=== PATIENT | female | born 1960 | race Hispanic/Latino ===

== ENCOUNTER 2025-03-31 05:38 | Inpatient (IN) | payer SELFPAY ==
[2025-03-31 06:39] LABS: #Basophils 0.04 10x3/uL (0.0-0.2); #Eosinophils 0.09 10x3/uL (0.0-0.7); #Monocytes 0.50 10x3/uL (0.11-0.59); #Neutrophils 6.46 10x3/uL (1.40-6.50); %Basophils 0.4 % (0.0-1.0); %Eosinophils 1.0 % (0.0-10.0); %Lymphocytes 24.0 % (21.0-51.0); %Monocytes 5.3 % (0.0-10.0); %Neutrophils 69.0 % (42.0-75.0); Hematocrit 41.6 % (36.0-47.0); Hemoglobin 13.7 g/dL (12.0-16.0); Mean Corpuscular Hemoglobin 27.3 pg (27.0-31.0); Mean Corpuscular Volume 83.0 fL (78.0-98.0); Platelet Count 326 10x3/uL (130-400); Red Blood Cell (RBC) Count 5.01 mill/uL (4.20-5.40); White Blood Cell (WBC) Count 9.37 10x3/uL (4.8-10.8)
[2025-03-31] MEDS ORDERED: Mag-Al 1200 mg/1200 mg/30 ML UDCUP ONE (06:55)
[2025-03-31] MEDS ORDERED: Lidocaine Viscous Sol 2% 15 ml UD Cup ONE (06:55)
[2025-03-31 06:58] LABS: ALT (SGPT) 13 U/L (Less than 34); AST (SGOT) 18 U/L (11-34); Albumin 3.8 g/dL (3.1-4.5); Alkaline Phosphatase 121 U/L (40-110); Anion Gap 17 mmol/L (10-20); BUN (Urea Nitrogen) 9 mg/dL (9.8-20.1); Bilirubin, Total 0.2 mg/dL (0.3-1.2); Calc. Creatinine Clearance 0 mL/min (70-130); Calcium 9.2 mg/dL (7.8-10.44); Carbon Dioxide 25 mmol/L (23-31); Chloride 102 mmol/L (98-107); Globulin 3.6 g/dL (2.4-3.5); Glucose 237 mg/dL (80-115); Lipase 83 U/L (8-78); Potassium 3.8 mmol/L (3.5-5.1); Sodium 140 mmol/L (136-145)
[2025-03-31] MEDS ORDERED: Aspirin Chewable 81 MG TAB ONE (07:18)
[2025-03-31] MEDS ORDERED: Ondansetron PF 4 MG/2 ML Vial ONE (07:20)
[2025-03-31] MEDS ORDERED: Glucagon 1 MG/ML KIT IM PRN (08:26)
[2025-03-31] MEDS ORDERED: Dextrose 50% Abboject 50 ML SYRINGE SLOW IVP PRN (08:26)
[2025-03-31] MEDS ORDERED: Ondansetron PF 4 MG/2 ML Vial IVP PRN (08:35)
[2025-03-31] MEDS ORDERED: Nitroglycerin 0.4 MG TAB (25 Tab Bottle) SL PRN (08:35)
[2025-03-31] MEDS ORDERED: Melatonin 3 MG TAB PO PRN (08:35)
[2025-03-31] MEDS: Aspirin Chewable 81 MG TAB PO SCH (09:29)
[2025-03-31] MEDS ORDERED: Enoxaparin 40 MG (0.4 mL) SYRINGE ONE (09:45)
[2025-03-31] MEDS ORDERED: Famotidine/PF 20 mg/2ml Vial ONE (09:45)
[2025-03-31] MEDS: Enoxaparin 40 MG (0.4 mL) SYRINGE SC SCH (09:55)
[2025-03-31] MEDS: Famotidine/PF 20 mg/2ml Vial SLOW IVP SCH (09:56)
[2025-03-31 12:18] VITALS: BMI 27.1
[2025-03-31] MEDS: Nitroglycerin 2% Ointment 1 INCH/1 GM Packet TOP SCH (15:08)
[2025-03-31] MEDS: Acetaminophen 325 MG TAB PO PRN (18:21)
[2025-04-01 04:39] LABS: #Basophils Less than 0.03 10x3/uL (0.0-0.2); #Eosinophils 0.06 10x3/uL (0.0-0.7); #Monocytes 0.39 10x3/uL (0.11-0.59); #Neutrophils 4.18 10x3/uL (1.40-6.50); %Basophils 0.3 % (0.0-1.0); %Eosinophils 0.9 % (0.0-10.0); %Lymphocytes 32.8 % (21.0-51.0); %Monocytes 5.6 % (0.0-10.0); %Neutrophils 60.1 % (42.0-75.0); Hematocrit 41.2 % (36.0-47.0); Hemoglobin 13.3 g/dL (12.0-16.0); Mean Corpuscular Hemoglobin 27.3 pg (27.0-31.0); Mean Corpuscular Volume 84.4 fL (78.0-98.0); Platelet Count 298 10x3/uL (130-400); Red Blood Cell (RBC) Count 4.88 mill/uL (4.20-5.40); White Blood Cell (WBC) Count 6.95 10x3/uL (4.8-10.8)
[2025-04-01 05:01] LABS: Anion Gap 13 mmol/L (10-20); BUN (Urea Nitrogen) 12 mg/dL (9.8-20.1); Calc. Creatinine Clearance 118 mL/min (70-130); Calcium 8.8 mg/dL (7.8-10.44); Carbon Dioxide 25 mmol/L (23-31); Cardiac Risk 3.7 (Less than 4.5); Chloride 103 mmol/L (98-107); Cholesterol 186 mg/dl (< 200 Desired); Glucose 203 mg/dL (80-115); HDL Cholesterol 50 mg/dL (>60 Neg Risk); LDL Cholesterol, Calculated 87 mg/dL; Potassium 3.9 mmol/L (3.5-5.1); Sodium 137 mmol/L (136-145); Triglycerides 246 mg/dL (Less than 150)
[2025-04-01] MEDS: glipiZIDE 5 MG TAB PO SCH (08:47)
[2025-04-01] MEDS: Lisinopril 20 MG TAB PO SCH (08:48)
[2025-04-01 14:12] VITALS: BMI 27.1
[2025-04-02] MEDS ORDERED: Iopamidol-370 76% 500 ML MDV (1 ML CHARGE) ONE (11:55)
[2025-04-02 15:07] VITALS: BP 115/49; TEMP 98.1
== END 2025-04-02 19:00 | disposition home or self-care (01) | DRG 281 ==
LOC: ERS 05:38 → ERHOLD 08:09 → 2NO 10:58
PROVIDERS: ADMIT Internal Medicine; ATTEND Internal Medicine
DX: I21.4 Non-ST elevation (NSTEMI) myocardial infarction (principal); I42.9 Cardiomyopathy, unspecified; I10 Essential (primary) hypertension; E11.9 Type 2 diabetes mellitus without complications; E78.00 Pure hypercholesterolemia, unspecified; Z79.899 Other long term (current) drug therapy; Z79.84 Long term (current) use of oral hypoglycemic drugs; Z98.890 Other specified postprocedural states
CPT/HCPCS: 36415; 36416; 71045; 74177; 76705; 78452; 80048; 80053; 80061; 83690; 84484; 85025; 93005; 93017; 93306; 96374; A9502; J1308; J1650; J1815; J2405; J2785; Q9967

== ENCOUNTER 2025-04-14 07:30 | Inpatient (IN) | payer SELFPAY ==
[2025-04-14 08:02] LABS: #Basophils 0.03 10x3/uL (0.0-0.2); #Eosinophils Less than 0.03 10x3/uL (0.0-0.7); #Monocytes 0.19 10x3/uL (0.11-0.59); #Neutrophils 11.00 10x3/uL (1.40-6.50); %Basophils 0.2 % (0.0-1.0); %Eosinophils 0.2 % (0.0-10.0); %Lymphocytes 11.1 % (21.0-51.0); %Monocytes 1.5 % (0.0-10.0); %Neutrophils 86.5 % (42.0-75.0); Hematocrit 43.3 % (36.0-47.0); Hemoglobin 14.2 g/dL (12.0-16.0); Mean Corpuscular Hemoglobin 27.5 pg (27.0-31.0); Mean Corpuscular Volume 83.9 fL (78.0-98.0); Platelet Count 358 10x3/uL (130-400); Red Blood Cell (RBC) Count 5.16 mill/uL (4.20-5.40); White Blood Cell (WBC) Count 12.71 10x3/uL (4.8-10.8)
[2025-04-14] MEDS ORDERED: Lidocaine Viscous Sol 2% 15 ml UD Cup ONE (08:11)
[2025-04-14] MEDS ORDERED: Mag-Al 1200 mg/1200 mg/30 ML UDCUP ONE (08:11)
[2025-04-14 08:16] LABS: ALT (SGPT) 13 U/L (Less than 34); AST (SGOT) 27 U/L (11-34); Albumin 3.9 g/dL (3.1-4.5); Alkaline Phosphatase 136 U/L (40-110); Anion Gap 17 mmol/L (10-20); BUN (Urea Nitrogen) 13 mg/dL (9.8-20.1); Bilirubin, Total 0.4 mg/dL (0.3-1.2); Calc. Creatinine Clearance 0 mL/min (70-130); Calcium 9.6 mg/dL (7.8-10.44); Carbon Dioxide 25 mmol/L (23-31); Chloride 98 mmol/L (98-107); Globulin 3.8 g/dL (2.4-3.5); Glucose 304 mg/dL (80-115); Potassium 3.6 mmol/L (3.5-5.1); Sodium 136 mmol/L (136-145)
[2025-04-14] MEDS ORDERED: Aspirin Chewable 81 MG TAB ONE (08:45)
[2025-04-14] MEDS ORDERED: Glucagon 1 MG/ML KIT IM PRN (09:51)
[2025-04-14] MEDS ORDERED: Dextrose 50% Abboject 50 ML SYRINGE SLOW IVP PRN (09:51)
[2025-04-14] MEDS ORDERED: Electrolyte Replacement Protocol 1 EACH FS SCH (10:00)
[2025-04-14 10:58] VITALS: BMI 30.6
[2025-04-14] MEDS ORDERED: Iopamidol 370 76% 100 ML VIAL ONE (11:27)
[2025-04-14] MEDS: Enoxaparin 80 MG (0.8 mL) SYRINGE SC SCH (12:05)
[2025-04-14] MEDS: Acetaminophen 325 MG TAB PO SCH (12:06)
[2025-04-14] MEDS: Ondansetron PF 4 MG/2 ML Vial IVP PRN (12:08)
[2025-04-14] MEDS: Nitroglycerin 0.4 MG TAB (25 Tab Bottle) SL PRN (12:08)
[2025-04-14] MEDS ORDERED: Lidocaine 1% (PF) 30 ML VIAL ONE (14:45)
[2025-04-14] MEDS ORDERED: Communication Order-Pharmacy FS SCH (14:45)
[2025-04-14] MEDS ORDERED: Adenosine 6 mg (2 mL) VIAL ONE (14:45)
[2025-04-14] MEDS ORDERED: Heparin 10,000 UNITS/ 10 ML VIAL ONE (14:45)
[2025-04-14] MEDS ORDERED: PHENYLEPHRINE-NS 100 MCG/ML 10 ML SYRINGE ONE (14:45)
[2025-04-14] MEDS ORDERED: Nitroglycerin 50 MG/250 ML BOT 250 ML ONE (14:45)
[2025-04-14 15:40] LABS: Bacteria/HPF None Seen HPF (None Seen); CAUTI Indications for Culture Dysuria,urgency,freq; Glucose, Urine (Dipstick) Greater than 1000 mg/dL (Negative); Leukocyte Negative Leu/uL (Negative); Protein, Urine (Dipstick) 20 mg/dL (Neg-Trace); RBC/HPF 0-3 HPF (0-3); Specific Gravity, Urine 1.039 (1.002-1.036); WBC/HPF 0-3 HPF (0-3)
[2025-04-14 15:54] LABS: Urine Culture Reflex No No
[2025-04-14] MEDS ORDERED: Enoxaparin 30 MG (0.3 mL) SYRINGE ONE (15:56)
[2025-04-14] MEDS ORDERED: Enoxaparin 40 MG (0.4 mL) SYRINGE ONE (15:56)
[2025-04-14] MEDS ORDERED: Metoprolol Tartrate 5 MG (5 mL) VIAL ONE (17:13)
[2025-04-14] MEDS ORDERED: DISCONTINUE PREVIOUS NARCOTIC PAIN MEDICATIONS AND BENZODIAZEPINES FS SCH (17:30)
[2025-04-14] MEDS ORDERED: Fentanyl BOLUS 100 ML IVPB PRN (17:30)
[2025-04-14] MEDS ORDERED: Propofol BOLUS 1,000 MG/100 ML VIAL IV PRN (17:30)
[2025-04-14] MEDS: Ventilator Sedation Protocol 1 EACH FS ONE (19:23)
[2025-04-14] MEDS: Famotidine/PF 20 mg/2ml Vial SLOW IVP SCH (19:39)
[2025-04-14 21:47] LABS: #Basophils 0.05 10x3/uL (0.0-0.2); #Eosinophils Less than 0.03 10x3/uL (0.0-0.7); #Monocytes 1.18 10x3/uL (0.11-0.59); #Neutrophils 11.85 10x3/uL (1.40-6.50); %Basophils 0.3 % (0.0-1.0); %Eosinophils 0.0 % (0.0-10.0); %Lymphocytes 17.4 % (21.0-51.0); %Monocytes 7.3 % (0.0-10.0); %Neutrophils 73.8 % (42.0-75.0); Hematocrit 40.6 % (36.0-47.0); Hemoglobin 12.9 g/dL (12.0-16.0); Mean Corpuscular Hemoglobin 27.0 pg (27.0-31.0); Mean Corpuscular Volume 84.9 fL (78.0-98.0); Platelet Count 317 10x3/uL (130-400); Red Blood Cell (RBC) Count 4.78 mill/uL (4.20-5.40); White Blood Cell (WBC) Count 16.07 10x3/uL (4.8-10.8)
[2025-04-14] MEDS: NOREPINEPHRINE 8 MG/250 ML-D5W 250 ML IVPB SCH (22:17)
[2025-04-15 02:03] LABS: #Basophils 0.05 10x3/uL (0.0-0.2); #Eosinophils Less than 0.03 10x3/uL (0.0-0.7); #Monocytes 1.28 10x3/uL (0.11-0.59); #Neutrophils 12.23 10x3/uL (1.40-6.50); %Basophils 0.3 % (0.0-1.0); %Eosinophils 0.1 % (0.0-10.0); %Lymphocytes 19.9 % (21.0-51.0); %Monocytes 7.5 % (0.0-10.0); %Neutrophils 71.8 % (42.0-75.0); Hematocrit 39.0 % (36.0-47.0); Hemoglobin 12.9 g/dL (12.0-16.0); Mean Corpuscular Hemoglobin 27.6 pg (27.0-31.0); Mean Corpuscular Volume 83.3 fL (78.0-98.0); Platelet Count 385 10x3/uL (130-400); Red Blood Cell (RBC) Count 4.68 mill/uL (4.20-5.40); White Blood Cell (WBC) Count 17.02 10x3/uL (4.8-10.8)
[2025-04-15 03:37] LABS: #Basophils 0.06 10x3/uL (0.0-0.2); #Eosinophils Less than 0.03 10x3/uL (0.0-0.7); #Monocytes 1.28 10x3/uL (0.11-0.59); #Neutrophils 12.16 10x3/uL (1.40-6.50); %Basophils 0.4 % (0.0-1.0); %Eosinophils 0.1 % (0.0-10.0); %Lymphocytes 20.6 % (21.0-51.0); %Monocytes 7.5 % (0.0-10.0); %Neutrophils 70.9 % (42.0-75.0); Hematocrit 40.0 % (36.0-47.0); Hemoglobin 12.8 g/dL (12.0-16.0); Mean Corpuscular Hemoglobin 27.1 pg (27.0-31.0); Mean Corpuscular Volume 84.7 fL (78.0-98.0); Platelet Count 350 10x3/uL (130-400); Red Blood Cell (RBC) Count 4.72 mill/uL (4.20-5.40); White Blood Cell (WBC) Count 17.12 10x3/uL (4.8-10.8)
[2025-04-15 03:54] LABS: ALT (SGPT) 94 U/L (Less than 34); AST (SGOT) 508 U/L (11-34); Albumin 3.0 g/dL (3.1-4.5); Alkaline Phosphatase 98 U/L (40-110); Anion Gap 17 mmol/L (10-20); BUN (Urea Nitrogen) 12 mg/dL (9.8-20.1); Bilirubin, Total 0.4 mg/dL (0.3-1.2); Calc. Creatinine Clearance 126 mL/min (70-130); Calcium 8.4 mg/dL (7.8-10.44); Carbon Dioxide 19 mmol/L (23-31); Cardiac Risk 3.7 (Less than 4.5); Chloride 103 mmol/L (98-107); Cholesterol 168 mg/dl (< 200 Desired); Globulin 3.3 g/dL (2.4-3.5); Glucose 248 mg/dL (80-115); HDL Cholesterol 46 mg/dL (>60 Neg Risk); LDL Cholesterol, Calculated 63 mg/dL; Potassium 3.2 mmol/L (3.5-5.1); Sodium 136 mmol/L (136-145); Triglycerides 293 mg/dL (Less than 150)
[2025-04-15 07:02] LABS: #Basophils 0.06 10x3/uL (0.0-0.2); #Eosinophils Less than 0.03 10x3/uL (0.0-0.7); #Monocytes 1.10 10x3/uL (0.11-0.59); #Neutrophils 11.10 10x3/uL (1.40-6.50); %Basophils 0.4 % (0.0-1.0); %Eosinophils 0.1 % (0.0-10.0); %Lymphocytes 22.0 % (21.0-51.0); %Monocytes 7.0 % (0.0-10.0); %Neutrophils 70.1 % (42.0-75.0); Hematocrit 38.0 % (36.0-47.0); Hemoglobin 12.4 g/dL (12.0-16.0); Mean Corpuscular Hemoglobin 27.6 pg (27.0-31.0); Mean Corpuscular Volume 84.6 fL (78.0-98.0); Platelet Count 361 10x3/uL (130-400); Red Blood Cell (RBC) Count 4.49 mill/uL (4.20-5.40); White Blood Cell (WBC) Count 15.80 10x3/uL (4.8-10.8)
[2025-04-15 08:21] LABS: Actual Bicarbonate (HCO3a) 20.6 mEq/L (22-28); Base Excess (BEa) -0.7 mEq/L (-2.0 to +3.0); CO2 Tension 25.6 mmHg (35.0-45.0); Calcium, Ionized (arterial) 1.15 mmol/L (1.12-1.30); Hematocrit-ABG 40 % (36.0-47.0); Hemoglobin (Hb) 13.5 g/dL (12.0-16.0); O2 Tension (PaO2), arterial 134.1 mmHg (> 80.0); Potassium - ABG Lab 3.17 mmol/L (3.70-5.30); pH, Arterial 7.523 (7.35-7.45)
[2025-04-15] MEDS: Carvedilol 3.125 MG TAB PO SCH (08:22)
[2025-04-15] MEDS: Potassium Chloride 20 MEQ in Premix 1 BAG IVPB SCH (08:22)
[2025-04-15 08:23] LABS: ALV-art Gradient 119.100 mmHg (0-20); Puncture Site Right Brachial art
[2025-04-15] MEDS: Aspirin Chewable 81 MG TAB PO SCH (08:53)
[2025-04-15] MEDS: Lisinopril 2.5 MG TAB PO SCH (08:54)
[2025-04-15] MEDS: PNEUMOC 20-VAL CONJ-DIP CRM/PF 0.5 ML SYRINGE IM ONE (09:04)
[2025-04-15 13:22] LABS: #Basophils 0.04 10x3/uL (0.0-0.2); #Eosinophils Less than 0.03 10x3/uL (0.0-0.7); #Monocytes 0.84 10x3/uL (0.11-0.59); #Neutrophils 9.87 10x3/uL (1.40-6.50); %Basophils 0.3 % (0.0-1.0); %Eosinophils 0.1 % (0.0-10.0); %Lymphocytes 14.1 % (21.0-51.0); %Monocytes 6.7 % (0.0-10.0); %Neutrophils 78.4 % (42.0-75.0); Hematocrit 37.4 % (36.0-47.0); Hemoglobin 12.0 g/dL (12.0-16.0); Mean Corpuscular Hemoglobin 27.3 pg (27.0-31.0); Mean Corpuscular Volume 85.0 fL (78.0-98.0); Platelet Count 309 10x3/uL (130-400); Red Blood Cell (RBC) Count 4.40 mill/uL (4.20-5.40); White Blood Cell (WBC) Count 12.58 10x3/uL (4.8-10.8)
[2025-04-15 18:59] LABS: #Basophils 0.05 10x3/uL (0.0-0.2); #Eosinophils Less than 0.03 10x3/uL (0.0-0.7); #Monocytes 0.86 10x3/uL (0.11-0.59); #Neutrophils 8.42 10x3/uL (1.40-6.50); %Basophils 0.4 % (0.0-1.0); %Eosinophils 0.2 % (0.0-10.0); %Lymphocytes 20.2 % (21.0-51.0); %Monocytes 7.3 % (0.0-10.0); %Neutrophils 71.6 % (42.0-75.0); Hematocrit 38.7 % (36.0-47.0); Hemoglobin 13.0 g/dL (12.0-16.0); Mean Corpuscular Hemoglobin 28.6 pg (27.0-31.0); Mean Corpuscular Volume 85.1 fL (78.0-98.0); Platelet Count 281 10x3/uL (130-400); Red Blood Cell (RBC) Count 4.55 mill/uL (4.20-5.40); White Blood Cell (WBC) Count 11.77 10x3/uL (4.8-10.8)
[2025-04-15] MEDS: Melatonin 3 MG TAB PO PRN (23:06)
[2025-04-16 00:52] LABS: #Basophils 0.05 10x3/uL (0.0-0.2); #Eosinophils 0.03 10x3/uL (0.0-0.7); #Monocytes 0.89 10x3/uL (0.11-0.59); #Neutrophils 8.37 10x3/uL (1.40-6.50); %Basophils 0.4 % (0.0-1.0); %Eosinophils 0.3 % (0.0-10.0); %Lymphocytes 20.1 % (21.0-51.0); %Monocytes 7.6 % (0.0-10.0); %Neutrophils 71.3 % (42.0-75.0); Hematocrit 35.0 % (36.0-47.0); Hemoglobin 11.1 g/dL (12.0-16.0); Mean Corpuscular Hemoglobin 27.4 pg (27.0-31.0); Mean Corpuscular Volume 86.4 fL (78.0-98.0); Platelet Count 238 10x3/uL (130-400); Red Blood Cell (RBC) Count 4.05 mill/uL (4.20-5.40); White Blood Cell (WBC) Count 11.72 10x3/uL (4.8-10.8)
[2025-04-16 04:45] LABS: ALT (SGPT) 58 U/L (Less than 34); AST (SGOT) 153 U/L (11-34); Albumin 2.8 g/dL (3.1-4.5); Alkaline Phosphatase 85 U/L (40-110); Anion Gap 13 mmol/L (10-20); BUN (Urea Nitrogen) 10 mg/dL (9.8-20.1); Bilirubin, Total 0.5 mg/dL (0.3-1.2); Calc. Creatinine Clearance 122 mL/min (70-130); Calcium 8.2 mg/dL (7.8-10.44); Carbon Dioxide 23 mmol/L (23-31); Chloride 104 mmol/L (98-107); Globulin 2.9 g/dL (2.4-3.5); Glucose 171 mg/dL (80-115); Potassium 3.5 mmol/L (3.5-5.1); Sodium 136 mmol/L (136-145)
[2025-04-16] MEDS: Albumin 5% 12.5 GM (250 mL) BOT IVPB SCH (05:49)
[2025-04-16 05:55] LABS: #Basophils 0.04 10x3/uL (0.0-0.2); #Eosinophils 0.06 10x3/uL (0.0-0.7); #Monocytes 0.78 10x3/uL (0.11-0.59); #Neutrophils 7.55 10x3/uL (1.40-6.50); %Basophils 0.4 % (0.0-1.0); %Eosinophils 0.6 % (0.0-10.0); %Lymphocytes 21.1 % (21.0-51.0); %Monocytes 7.3 % (0.0-10.0); %Neutrophils 70.2 % (42.0-75.0); Hematocrit 34.0 % (36.0-47.0); Hemoglobin 11.0 g/dL (12.0-16.0); Mean Corpuscular Hemoglobin 28.1 pg (27.0-31.0); Mean Corpuscular Volume 87.0 fL (78.0-98.0); Platelet Count 253 10x3/uL (130-400); Red Blood Cell (RBC) Count 3.91 mill/uL (4.20-5.40); White Blood Cell (WBC) Count 10.73 10x3/uL (4.8-10.8)
[2025-04-16] MEDS: Potassium Chloride 20 MEQ in Premix 1 BAG IVPB SCH (11:15)
[2025-04-16 12:41] LABS: #Basophils 0.04 10x3/uL (0.0-0.2); #Eosinophils 0.04 10x3/uL (0.0-0.7); #Monocytes 0.53 10x3/uL (0.11-0.59); #Neutrophils 6.69 10x3/uL (1.40-6.50); %Basophils 0.4 % (0.0-1.0); %Eosinophils 0.4 % (0.0-10.0); %Lymphocytes 20.5 % (21.0-51.0); %Monocytes 5.7 % (0.0-10.0); %Neutrophils 72.7 % (42.0-75.0); Hematocrit 33.7 % (36.0-47.0); Hemoglobin 10.5 g/dL (12.0-16.0); Mean Corpuscular Hemoglobin 27.2 pg (27.0-31.0); Mean Corpuscular Volume 87.3 fL (78.0-98.0); Platelet Count 235 10x3/uL (130-400); Red Blood Cell (RBC) Count 3.86 mill/uL (4.20-5.40); White Blood Cell (WBC) Count 9.22 10x3/uL (4.8-10.8)
[2025-04-16] MEDS: Carvedilol 3.125 MG TAB PO SCH (17:58)
[2025-04-16 18:41] LABS: #Basophils 0.03 10x3/uL (0.0-0.2); #Eosinophils 0.06 10x3/uL (0.0-0.7); #Monocytes 0.64 10x3/uL (0.11-0.59); #Neutrophils 5.80 10x3/uL (1.40-6.50); %Basophils 0.3 % (0.0-1.0); %Eosinophils 0.7 % (0.0-10.0); %Lymphocytes 24.7 % (21.0-51.0); %Monocytes 7.4 % (0.0-10.0); %Neutrophils 66.7 % (42.0-75.0); Hematocrit 32.4 % (36.0-47.0); Hemoglobin 10.5 g/dL (12.0-16.0); Mean Corpuscular Hemoglobin 27.7 pg (27.0-31.0); Mean Corpuscular Volume 85.5 fL (78.0-98.0); Platelet Count 233 10x3/uL (130-400); Red Blood Cell (RBC) Count 3.79 mill/uL (4.20-5.40); White Blood Cell (WBC) Count 8.70 10x3/uL (4.8-10.8)
[2025-04-17 01:16] LABS: #Basophils 0.04 10x3/uL (0.0-0.2); #Eosinophils 0.06 10x3/uL (0.0-0.7); #Monocytes 0.64 10x3/uL (0.11-0.59); #Neutrophils 7.18 10x3/uL (1.40-6.50); %Basophils 0.4 % (0.0-1.0); %Eosinophils 0.6 % (0.0-10.0); %Lymphocytes 21.1 % (21.0-51.0); %Monocytes 6.3 % (0.0-10.0); %Neutrophils 71.3 % (42.0-75.0); Hematocrit 31.8 % (36.0-47.0); Hemoglobin 10.0 g/dL (12.0-16.0); Mean Corpuscular Hemoglobin 27.9 pg (27.0-31.0); Mean Corpuscular Volume 88.6 fL (78.0-98.0); Platelet Count 235 10x3/uL (130-400); Red Blood Cell (RBC) Count 3.59 mill/uL (4.20-5.40); White Blood Cell (WBC) Count 10.08 10x3/uL (4.8-10.8)
[2025-04-17 05:47] LABS: #Basophils 0.04 10x3/uL (0.0-0.2); #Eosinophils 0.07 10x3/uL (0.0-0.7); #Monocytes 0.50 10x3/uL (0.11-0.59); #Neutrophils 4.56 10x3/uL (1.40-6.50); %Basophils 0.6 % (0.0-1.0); %Eosinophils 1.0 % (0.0-10.0); %Lymphocytes 28.7 % (21.0-51.0); %Monocytes 6.9 % (0.0-10.0); %Neutrophils 62.7 % (42.0-75.0); Hematocrit 31.9 % (36.0-47.0); Hemoglobin 10.2 g/dL (12.0-16.0); Mean Corpuscular Hemoglobin 27.6 pg (27.0-31.0); Mean Corpuscular Volume 86.2 fL (78.0-98.0); Platelet Count 235 10x3/uL (130-400); Red Blood Cell (RBC) Count 3.70 mill/uL (4.20-5.40); White Blood Cell (WBC) Count 7.27 10x3/uL (4.8-10.8)
[2025-04-17 06:09] LABS: ALT (SGPT) 36 U/L (Less than 34); AST (SGOT) 69 U/L (11-34); Albumin 3.0 g/dL (3.1-4.5); Alkaline Phosphatase 80 U/L (40-110); Anion Gap 12 mmol/L (10-20); BUN (Urea Nitrogen) 10 mg/dL (9.8-20.1); Bilirubin, Total 0.4 mg/dL (0.3-1.2); Calc. Creatinine Clearance 125 mL/min (70-130); Calcium 8.3 mg/dL (7.8-10.44); Carbon Dioxide 23 mmol/L (23-31); Chloride 109 mmol/L (98-107); Globulin 2.9 g/dL (2.4-3.5); Glucose 146 mg/dL (80-115); Potassium 3.7 mmol/L (3.5-5.1); Sodium 140 mmol/L (136-145)
[2025-04-17 06:46] LABS: #Basophils 0.03 10x3/uL (0.0-0.2); #Eosinophils 0.09 10x3/uL (0.0-0.7); #Monocytes 0.49 10x3/uL (0.11-0.59); #Neutrophils 4.51 10x3/uL (1.40-6.50); %Basophils 0.4 % (0.0-1.0); %Eosinophils 1.2 % (0.0-10.0); %Lymphocytes 29.1 % (21.0-51.0); %Monocytes 6.8 % (0.0-10.0); %Neutrophils 62.2 % (42.0-75.0); Hematocrit 30.0 % (36.0-47.0); Hemoglobin 9.8 g/dL (12.0-16.0); Mean Corpuscular Hemoglobin 27.7 pg (27.0-31.0); Mean Corpuscular Volume 84.7 fL (78.0-98.0); Platelet Count 229 10x3/uL (130-400); Red Blood Cell (RBC) Count 3.54 mill/uL (4.20-5.40); White Blood Cell (WBC) Count 7.25 10x3/uL (4.8-10.8)
[2025-04-17] MEDS: Dapagliflozin Propanediol 10 MG TAB PO SCH (08:19)
[2025-04-17 11:58] VITALS: BMI 30.9
[2025-04-17 13:29] LABS: #Basophils 0.03 10x3/uL (0.0-0.2); #Eosinophils 0.10 10x3/uL (0.0-0.7); #Monocytes 0.46 10x3/uL (0.11-0.59); #Neutrophils 5.49 10x3/uL (1.40-6.50); %Basophils 0.4 % (0.0-1.0); %Eosinophils 1.2 % (0.0-10.0); %Lymphocytes 24.2 % (21.0-51.0); %Monocytes 5.7 % (0.0-10.0); %Neutrophils 68.0 % (42.0-75.0); Hematocrit 31.8 % (36.0-47.0); Hemoglobin 10.1 g/dL (12.0-16.0); Mean Corpuscular Hemoglobin 27.4 pg (27.0-31.0); Mean Corpuscular Volume 86.2 fL (78.0-98.0); Platelet Count 242 10x3/uL (130-400); Red Blood Cell (RBC) Count 3.69 mill/uL (4.20-5.40); White Blood Cell (WBC) Count 8.07 10x3/uL (4.8-10.8)
[2025-04-17 19:03] LABS: #Basophils 0.04 10x3/uL (0.0-0.2); #Eosinophils 0.12 10x3/uL (0.0-0.7); #Monocytes 0.46 10x3/uL (0.11-0.59); #Neutrophils 5.84 10x3/uL (1.40-6.50); %Basophils 0.5 % (0.0-1.0); %Eosinophils 1.4 % (0.0-10.0); %Lymphocytes 23.8 % (21.0-51.0); %Monocytes 5.4 % (0.0-10.0); %Neutrophils 68.7 % (42.0-75.0); Hematocrit 31.9 % (36.0-47.0); Hemoglobin 10.5 g/dL (12.0-16.0); Mean Corpuscular Hemoglobin 27.7 pg (27.0-31.0); Mean Corpuscular Volume 84.2 fL (78.0-98.0); Platelet Count 258 10x3/uL (130-400); Red Blood Cell (RBC) Count 3.79 mill/uL (4.20-5.40); White Blood Cell (WBC) Count 8.50 10x3/uL (4.8-10.8)
[2025-04-18 00:59] LABS: #Basophils 0.04 10x3/uL (0.0-0.2); #Eosinophils 0.15 10x3/uL (0.0-0.7); #Monocytes 0.49 10x3/uL (0.11-0.59); #Neutrophils 5.50 10x3/uL (1.40-6.50); %Basophils 0.5 % (0.0-1.0); %Eosinophils 1.8 % (0.0-10.0); %Lymphocytes 25.4 % (21.0-51.0); %Monocytes 5.9 % (0.0-10.0); %Neutrophils 66.2 % (42.0-75.0); Hematocrit 30.8 % (36.0-47.0); Hemoglobin 10.1 g/dL (12.0-16.0); Mean Corpuscular Hemoglobin 27.9 pg (27.0-31.0); Mean Corpuscular Volume 85.1 fL (78.0-98.0); Platelet Count 243 10x3/uL (130-400); Red Blood Cell (RBC) Count 3.62 mill/uL (4.20-5.40); White Blood Cell (WBC) Count 8.31 10x3/uL (4.8-10.8)
[2025-04-18 05:11] LABS: #Basophils 0.04 10x3/uL (0.0-0.2); #Eosinophils 0.12 10x3/uL (0.0-0.7); #Monocytes 0.48 10x3/uL (0.11-0.59); #Neutrophils 4.54 10x3/uL (1.40-6.50); %Basophils 0.6 % (0.0-1.0); %Eosinophils 1.7 % (0.0-10.0); %Lymphocytes 27.8 % (21.0-51.0); %Monocytes 6.6 % (0.0-10.0); %Neutrophils 62.9 % (42.0-75.0); Hematocrit 32.5 % (36.0-47.0); Hemoglobin 10.6 g/dL (12.0-16.0); Mean Corpuscular Hemoglobin 27.5 pg (27.0-31.0); Mean Corpuscular Volume 84.4 fL (78.0-98.0); Platelet Count 270 10x3/uL (130-400); Red Blood Cell (RBC) Count 3.85 mill/uL (4.20-5.40); White Blood Cell (WBC) Count 7.22 10x3/uL (4.8-10.8)
[2025-04-18 05:28] LABS: ALT (SGPT) 30 U/L (Less than 34); AST (SGOT) 40 U/L (11-34); Albumin 3.2 g/dL (3.1-4.5); Alkaline Phosphatase 91 U/L (40-110); Anion Gap 21 mmol/L (10-20); BUN (Urea Nitrogen) 10 mg/dL (9.8-20.1); Bilirubin, Total 0.4 mg/dL (0.3-1.2); Calc. Creatinine Clearance 115 mL/min (70-130); Calcium 8.8 mg/dL (7.8-10.44); Carbon Dioxide 21 mmol/L (23-31); Chloride 102 mmol/L (98-107); Globulin 3.2 g/dL (2.4-3.5); Glucose 134 mg/dL (80-115); Potassium 3.7 mmol/L (3.5-5.1); Sodium 140 mmol/L (136-145)
[2025-04-18 07:18] LABS: #Basophils 0.03 10x3/uL (0.0-0.2); #Eosinophils 0.15 10x3/uL (0.0-0.7); #Monocytes 0.46 10x3/uL (0.11-0.59); #Neutrophils 4.61 10x3/uL (1.40-6.50); %Basophils 0.4 % (0.0-1.0); %Eosinophils 2.1 % (0.0-10.0); %Lymphocytes 27.8 % (21.0-51.0); %Monocytes 6.3 % (0.0-10.0); %Neutrophils 63.3 % (42.0-75.0); Hematocrit 33.7 % (36.0-47.0); Hemoglobin 10.6 g/dL (12.0-16.0); Mean Corpuscular Hemoglobin 27.2 pg (27.0-31.0); Mean Corpuscular Volume 86.4 fL (78.0-98.0); Platelet Count 264 10x3/uL (130-400); Red Blood Cell (RBC) Count 3.90 mill/uL (4.20-5.40); White Blood Cell (WBC) Count 7.29 10x3/uL (4.8-10.8)
[2025-04-18 12:38] LABS: #Basophils 0.04 10x3/uL (0.0-0.2); #Eosinophils 0.14 10x3/uL (0.0-0.7); #Monocytes 0.53 10x3/uL (0.11-0.59); #Neutrophils 5.63 10x3/uL (1.40-6.50); %Basophils 0.5 % (0.0-1.0); %Eosinophils 1.6 % (0.0-10.0); %Lymphocytes 26.7 % (21.0-51.0); %Monocytes 6.1 % (0.0-10.0); %Neutrophils 64.8 % (42.0-75.0); Hematocrit 36.7 % (36.0-47.0); Hemoglobin 11.7 g/dL (12.0-16.0); Mean Corpuscular Hemoglobin 27.7 pg (27.0-31.0); Mean Corpuscular Volume 86.8 fL (78.0-98.0); Platelet Count 281 10x3/uL (130-400); Red Blood Cell (RBC) Count 4.23 mill/uL (4.20-5.40); White Blood Cell (WBC) Count 8.69 10x3/uL (4.8-10.8)
[2025-04-18] MEDS: Carvedilol 3.125 MG TAB PO SCH (16:43)
[2025-04-18 19:14] LABS: #Basophils Less than 0.03 10x3/uL (0.0-0.2); #Eosinophils 0.13 10x3/uL (0.0-0.7); #Monocytes 0.41 10x3/uL (0.11-0.59); #Neutrophils 4.57 10x3/uL (1.40-6.50); %Basophils 0.3 % (0.0-1.0); %Eosinophils 1.9 % (0.0-10.0); %Lymphocytes 26.0 % (21.0-51.0); %Monocytes 5.9 % (0.0-10.0); %Neutrophils 65.6 % (42.0-75.0); Hematocrit 32.5 % (36.0-47.0); Hemoglobin 10.7 g/dL (12.0-16.0); Mean Corpuscular Hemoglobin 27.4 pg (27.0-31.0); Mean Corpuscular Volume 83.3 fL (78.0-98.0); Platelet Count 270 10x3/uL (130-400); Red Blood Cell (RBC) Count 3.90 mill/uL (4.20-5.40); White Blood Cell (WBC) Count 6.96 10x3/uL (4.8-10.8)
[2025-04-19 01:03] LABS: #Basophils 0.05 10x3/uL (0.0-0.2); #Eosinophils 0.20 10x3/uL (0.0-0.7); #Monocytes 0.52 10x3/uL (0.11-0.59); #Neutrophils 4.20 10x3/uL (1.40-6.50); %Basophils 0.7 % (0.0-1.0); %Eosinophils 2.8 % (0.0-10.0); %Lymphocytes 31.3 % (21.0-51.0); %Monocytes 7.2 % (0.0-10.0); %Neutrophils 57.7 % (42.0-75.0); Hematocrit 31.8 % (36.0-47.0); Hemoglobin 10.4 g/dL (12.0-16.0); Mean Corpuscular Hemoglobin 27.4 pg (27.0-31.0); Mean Corpuscular Volume 83.9 fL (78.0-98.0); Platelet Count 277 10x3/uL (130-400); Red Blood Cell (RBC) Count 3.79 mill/uL (4.20-5.40); White Blood Cell (WBC) Count 7.26 10x3/uL (4.8-10.8)
[2025-04-19 04:36] LABS: #Basophils 0.04 10x3/uL (0.0-0.2); #Eosinophils 0.17 10x3/uL (0.0-0.7); #Monocytes 0.45 10x3/uL (0.11-0.59); #Neutrophils 4.64 10x3/uL (1.40-6.50); %Basophils 0.6 % (0.0-1.0); %Eosinophils 2.3 % (0.0-10.0); %Lymphocytes 26.3 % (21.0-51.0); %Monocytes 6.2 % (0.0-10.0); %Neutrophils 63.9 % (42.0-75.0); Hematocrit 33.8 % (36.0-47.0); Hemoglobin 11.0 g/dL (12.0-16.0); Mean Corpuscular Hemoglobin 27.4 pg (27.0-31.0); Mean Corpuscular Volume 84.1 fL (78.0-98.0); Platelet Count 275 10x3/uL (130-400); Red Blood Cell (RBC) Count 4.02 mill/uL (4.20-5.40); White Blood Cell (WBC) Count 7.26 10x3/uL (4.8-10.8)
[2025-04-19 04:58] LABS: ALT (SGPT) 25 U/L (Less than 34); AST (SGOT) 28 U/L (11-34); Albumin 3.2 g/dL (3.1-4.5); Alkaline Phosphatase 97 U/L (40-110); Anion Gap 17 mmol/L (10-20); BUN (Urea Nitrogen) 12 mg/dL (9.8-20.1); Bilirubin, Total 0.3 mg/dL (0.3-1.2); Calc. Creatinine Clearance 117 mL/min (70-130); Calcium 9.2 mg/dL (7.8-10.44); Carbon Dioxide 24 mmol/L (23-31); Chloride 104 mmol/L (98-107); Globulin 3.5 g/dL (2.4-3.5); Glucose 122 mg/dL (80-115); Potassium 3.9 mmol/L (3.5-5.1); Sodium 141 mmol/L (136-145)
[2025-04-19 06:33] LABS: #Basophils Less than 0.03 10x3/uL (0.0-0.2); #Eosinophils 0.16 10x3/uL (0.0-0.7); #Monocytes 0.41 10x3/uL (0.11-0.59); #Neutrophils 4.51 10x3/uL (1.40-6.50); %Basophils 0.3 % (0.0-1.0); %Eosinophils 2.3 % (0.0-10.0); %Lymphocytes 26.3 % (21.0-51.0); %Monocytes 5.9 % (0.0-10.0); %Neutrophils 64.8 % (42.0-75.0); Hematocrit 33.7 % (36.0-47.0); Hemoglobin 10.9 g/dL (12.0-16.0); Mean Corpuscular Hemoglobin 27.4 pg (27.0-31.0); Mean Corpuscular Volume 84.7 fL (78.0-98.0); Platelet Count 278 10x3/uL (130-400); Red Blood Cell (RBC) Count 3.98 mill/uL (4.20-5.40); White Blood Cell (WBC) Count 6.96 10x3/uL (4.8-10.8)
[2025-04-19 12:30] LABS: #Basophils 0.03 10x3/uL (0.0-0.2); #Eosinophils 0.16 10x3/uL (0.0-0.7); #Monocytes 0.46 10x3/uL (0.11-0.59); #Neutrophils 5.73 10x3/uL (1.40-6.50); %Basophils 0.4 % (0.0-1.0); %Eosinophils 1.9 % (0.0-10.0); %Lymphocytes 23.5 % (21.0-51.0); %Monocytes 5.5 % (0.0-10.0); %Neutrophils 68.2 % (42.0-75.0); Hematocrit 36.4 % (36.0-47.0); Hemoglobin 11.8 g/dL (12.0-16.0); Mean Corpuscular Hemoglobin 27.6 pg (27.0-31.0); Mean Corpuscular Volume 85.2 fL (78.0-98.0); Platelet Count 322 10x3/uL (130-400); Red Blood Cell (RBC) Count 4.27 mill/uL (4.20-5.40); White Blood Cell (WBC) Count 8.39 10x3/uL (4.8-10.8)
[2025-04-19] MEDS: Pantoprazole 40 MG DR.TAB PO SCH (15:45)
[2025-04-19 19:53] LABS: #Basophils 0.05 10x3/uL (0.0-0.2); #Eosinophils 0.17 10x3/uL (0.0-0.7); #Monocytes 0.43 10x3/uL (0.11-0.59); #Neutrophils 4.75 10x3/uL (1.40-6.50); %Basophils 0.6 % (0.0-1.0); %Eosinophils 2.2 % (0.0-10.0); %Lymphocytes 29.9 % (21.0-51.0); %Monocytes 5.6 % (0.0-10.0); %Neutrophils 61.4 % (42.0-75.0); Hematocrit 36.1 % (36.0-47.0); Hemoglobin 11.7 g/dL (12.0-16.0); Mean Corpuscular Hemoglobin 27.5 pg (27.0-31.0); Mean Corpuscular Volume 84.9 fL (78.0-98.0); Platelet Count 328 10x3/uL (130-400); Red Blood Cell (RBC) Count 4.25 mill/uL (4.20-5.40); White Blood Cell (WBC) Count 7.73 10x3/uL (4.8-10.8)
[2025-04-20] MEDS: Guaifenesin DM 100-10/5 ML UDCUP PO PRN (00:14)
[2025-04-20 02:09] LABS: #Basophils 0.04 10x3/uL (0.0-0.2); #Eosinophils 0.17 10x3/uL (0.0-0.7); #Monocytes 0.45 10x3/uL (0.11-0.59); #Neutrophils 3.87 10x3/uL (1.40-6.50); %Basophils 0.6 % (0.0-1.0); %Eosinophils 2.6 % (0.0-10.0); %Lymphocytes 31.4 % (21.0-51.0); %Monocytes 6.8 % (0.0-10.0); %Neutrophils 58.3 % (42.0-75.0); Hematocrit 32.8 % (36.0-47.0); Hemoglobin 10.8 g/dL (12.0-16.0); Mean Corpuscular Hemoglobin 27.8 pg (27.0-31.0); Mean Corpuscular Volume 84.3 fL (78.0-98.0); Platelet Count 291 10x3/uL (130-400); Red Blood Cell (RBC) Count 3.89 mill/uL (4.20-5.40); White Blood Cell (WBC) Count 6.63 10x3/uL (4.8-10.8)
[2025-04-20 06:38] LABS: #Basophils 0.03 10x3/uL (0.0-0.2); #Eosinophils 0.17 10x3/uL (0.0-0.7); #Monocytes 0.42 10x3/uL (0.11-0.59); #Neutrophils 3.56 10x3/uL (1.40-6.50); %Basophils 0.5 % (0.0-1.0); %Eosinophils 2.8 % (0.0-10.0); %Lymphocytes 31.1 % (21.0-51.0); %Monocytes 6.9 % (0.0-10.0); %Neutrophils 58.4 % (42.0-75.0); Hematocrit 34.2 % (36.0-47.0); Hemoglobin 10.9 g/dL (12.0-16.0); Mean Corpuscular Hemoglobin 27.0 pg (27.0-31.0); Mean Corpuscular Volume 84.9 fL (78.0-98.0); Platelet Count 299 10x3/uL (130-400); Red Blood Cell (RBC) Count 4.03 mill/uL (4.20-5.40); White Blood Cell (WBC) Count 6.10 10x3/uL (4.8-10.8)
[2025-04-20] MEDS: Pantoprazole 40 MG DR.TAB PO SCH (09:40)
[2025-04-20 11:37] VITALS: BP 105/66; TEMP 98.7
[2025-04-20 12:54] LABS: #Basophils 0.03 10x3/uL (0.0-0.2); #Eosinophils 0.16 10x3/uL (0.0-0.7); #Monocytes 0.35 10x3/uL (0.11-0.59); #Neutrophils 5.11 10x3/uL (1.40-6.50); %Basophils 0.4 % (0.0-1.0); %Eosinophils 2.1 % (0.0-10.0); %Lymphocytes 25.3 % (21.0-51.0); %Monocytes 4.6 % (0.0-10.0); %Neutrophils 67.2 % (42.0-75.0); Hematocrit 35.4 % (36.0-47.0); Hemoglobin 11.4 g/dL (12.0-16.0); Mean Corpuscular Hemoglobin 27.5 pg (27.0-31.0); Mean Corpuscular Volume 85.3 fL (78.0-98.0); Platelet Count 333 10x3/uL (130-400); Red Blood Cell (RBC) Count 4.15 mill/uL (4.20-5.40); White Blood Cell (WBC) Count 7.60 10x3/uL (4.8-10.8)
== END 2025-04-20 14:19 | disposition home or self-care (01) | DRG 321 ==
LOC: ERS 07:30 → OBS 09:32 → CCU 18:42 → 2NO 04-16 14:08
PROVIDERS: ADMIT Internal Medicine; ATTEND Internal Medicine
PROC: 4A023N7 Measurement of Cardiac Sampling and Pressure, Left Heart, Percutaneous Approach (ICD-10-PCS; principal; 2025-04-14)
PROC: 027035Z Dilation of Coronary Artery, One Artery with Two Drug-eluting Intraluminal Devices, Percutaneous Approach (ICD-10-PCS; principal; 2025-04-14)
PROC: B2051ZZ Plain Radiography of Left Heart using Low Osmolar Contrast (ICD-10-PCS; principal; 2025-04-14)
PROC: B2011ZZ Plain Radiography of Multiple Coronary Arteries using Low Osmolar Contrast (ICD-10-PCS; principal; 2025-04-14)
PROC: 5A1935Z Respiratory Ventilation, Less than 24 Consecutive Hours (ICD-10-PCS; 2025-04-14)
DX: I21.4 Non-ST elevation (NSTEMI) myocardial infarction (principal); J95.821 Acute postprocedural respiratory failure; G93.40 Encephalopathy, unspecified; I42.9 Cardiomyopathy, unspecified; I10 Essential (primary) hypertension; E78.5 Hyperlipidemia, unspecified; E11.65 Type 2 diabetes mellitus with hyperglycemia; R11.2 Nausea with vomiting, unspecified; Z79.899 Other long term (current) drug therapy; Z79.84 Long term (current) use of oral hypoglycemic drugs; Z79.82 Long term (current) use of aspirin; Z79.01 Long term (current) use of anticoagulants
CPT/HCPCS: 36415; 36416; 36600; 71045; 74018; 80053; 80061; 81001; 82805; 84484; 85025; 85347; 92941; 93005; 93010; 93306; 93458; 93798; 94002; 94003; 99152; 99153; C1725; C1769; C1874; C1887; C1894; C9606; J0153; J0461; J1308; J1644; J1650; J1815; J2250; J2405; J2704; J3010; J3246; J3480; P9045; Q9967